=== PATIENT | female | born 1955 | race African-American/Black ===

== ENCOUNTER 2022-02-09 18:57 | Inpatient (IN) | payer MEDICARE, MEDICAID ==
[~2022-02-09] VITALS: Ht 152.4 cm; Wt 107.5 kg
[~2022-02-09 18:57] MED LIST: ASCO500C18 PO; ASPI-1079 PO; CLON1PAT12 TD; DOCU-138 MT; FERR325T30 PO; FOLI-43 PO; GABA-532 PO; HYDR-4001 MT; INSU100I24 SQ; LOSA100T32 PO; MELO-104 PO; NIFE-33 PO; OMEP20CA14 PO; SENN-257 MT
[2022-02-09 22:15] LABS: BASOPHILS % 0.3 % (0.0-2.0); EOSINOPHILS % 0.8 % (0.0-5.0); HEMATOCRIT. 34.2 % (36.0-48.0); HEMOGLOBIN. 10.8 g/dL (12.0-16.0); LYMPHOCYTES % 12.1 % (20.0-50.0); MEAN CORPUSCULAR HEMOGLOBIN 27.1 pg (28.0-32.0); MEAN CORPUSCULAR VOLUME 85.9 fL (81.0-99.0); MEAN PLATELET VOLUME 6.8 fl (7.4-10.4); MONOCYTES % 3.7 % (2.0-8.0); NEUTROPHILS % 83.1 % (40.0-76.0); PLATELET 259 x1000/uL (130-400); RED BLOOD CELL COUNT 3.98 mill/uL (4.2-5.4); RED CELL DISTRIBUTION WIDTH 16.3 % (11.6-14.6)
[2022-02-09] MEDS ORDERED: ASPIRIN 81MG TABLET PO ONE (22:15)
[2022-02-09] MEDS ORDERED: SODIUM CHLORIDE 0.9% 1,000 ML IV ONE (22:15)
[2022-02-09 22:22] LABS: CHLORIDE 107 mEq/L (98-107)
[2022-02-10] MEDS ORDERED: IOHEXOL-350 100 ML BOTTLE ONE (06:05)
[2022-02-10 09:13] VITALS: BP 160/66
[2022-02-10 09:20] VITALS: BP 160/66
[2022-02-10 12:00] VITALS: BP 160/54
[2022-02-10] MEDS: AMLODIPINE 10MG TABLET PO SCH (13:05)
[2022-02-10 16:30] VITALS: BP 168/60
[2022-02-10] MEDS ORDERED: NIFEDIPINE XL 30MG TAB PO SCH (17:45)
[2022-02-10] MEDS ORDERED: HYDROCODONE/ACETAMINOPHEN 5/325MG TABLET PO PRN (17:45)
[2022-02-10] MEDS: INSULIN LISPRO 100 UNITS/ML SUBCUT SCH ×2 (17:50→20:38)
[2022-02-10] MEDS: FUROSEMIDE 40MG/4ML VIAL IVP SCH (18:07)
[2022-02-10] MEDS: LOSARTAN POTASSIUM 100 MG TABLET PO SCH (18:07)
[2022-02-10] MEDS: GABAPENTIN 300MG CAPSULE PO SCH (18:07)
[2022-02-10 18:12] LABS: BASOPHILS % 0.3 % (0.0-2.0); EOSINOPHILS % 0.8 % (0.0-5.0); HEMATOCRIT. 32.8 % (36.0-48.0); HEMOGLOBIN. 10.5 g/dL (12.0-16.0); LYMPHOCYTES % 15.4 % (20.0-50.0); MEAN CORPUSCULAR HEMOGLOBIN 27.9 pg (28.0-32.0); MEAN CORPUSCULAR VOLUME 87.3 fL (81.0-99.0); MEAN PLATELET VOLUME 7.1 fl (7.4-10.4); MONOCYTES % 8.8 % (2.0-8.0); NEUTROPHILS % 74.7 % (40.0-76.0); PLATELET 269 x1000/uL (130-400); RED BLOOD CELL COUNT 3.76 mill/uL (4.2-5.4); RED CELL DISTRIBUTION WIDTH 16.6 % (11.6-14.6)
[2022-02-10 18:23] LABS: CLARITY URINE CLEAR (CLEAR); COLOR URINE YELLOW (YELLOW); KETONES URINE NEGATIVE (NEGATIVE); LEUKOCYTE ESTERASE URINE NEGATIVE (NEGATIVE); NITRITE URINE NEGATIVE (NEGATIVE); OCCULT BLOOD URINE NEGATIVE (NEGATIVE); PROTEIN URINE 3+ (NEGATIVE); UROBILINOGEN URINE 0.2 E.U./dL (0.2-1.0)
[2022-02-10 18:34] LABS: *AMPHETAMINES SCREEN URINE NEGATIVE (NEGATIVE); *BARBITURATES SCREEN URINE NEGATIVE (NEGATIVE); *BENZODIAZEPINES SCREEN URINE NEGATIVE (NEGATIVE); *COCAINE SCREEN URINE NEGATIVE (NEGATIVE); CANNABINOID URINE SCREEN NEGATIVE (NEGATIVE); METHADONE URINE SCREEN NEGATIVE (NEGATIVE); OPIATES URINE SCREEN NEGATIVE (NEGATIVE); PHENCYCLIDINE URINE SCREEN NEGATIVE (NEGATIVE)
[2022-02-10 19:10] LABS: BG BASE EXCESS -4.7 mmol/L (-2.0-2.0); BG CARBOXYHEMOGLOBIN 0.3 % (0.5-1.5); BG DEOXYHEMOGLOBIN 17.1 % (0.0-5.0); BG FRACTION INSPIRED OXYGEN 21; BG METHEMOGLOBIN 0.3 % (0.0-1.5); BG OXYGEN SATURATION 82.8 % (92.0-98.5); BG OXYHEMOGLOBIN 82.3 % (94.0-97.0); BG PH 7.199 (7.350-7.450); BG PO2 48.6 mmHg (75.0-100.0); BG SAMPLE SITE RIGHT BRACHIAL; BG TOTAL HEMOGLOBIN 11.4 g/dL (12.0-18.0); BG VENT MODE ROOM AIR
[2022-02-10 20:00] VITALS: BP 155/69
[2022-02-10] MEDS ORDERED: LEVOFLOXACIN 500MG PREMIX 100 ML IV SCH ×2 (20:00)
[2022-02-10] MEDS: BLOOD SUGAR DIAGNOSTIC STRIP TEST SCH (20:35)
[2022-02-10] MEDS: ATORVASTATIN CALCIUM 40MG TABLET PO SCH (20:35)
[2022-02-10] MEDS: INSULIN GLARGINE 100 UNITS/ML SUBCUT SCH (20:38)
[2022-02-11] VITALS (74 sets, daily range): BP systolic 100–221; BP diastolic 46–150
[2022-02-11] MEDS: OMEPRAZOLE 20MG CAPSULE EXTENDED RELEASE PO SCH ×2 (06:23→06:31)
[2022-02-11] MEDS: BLOOD SUGAR DIAGNOSTIC STRIP TEST SCH ×4 (06:23→21:12)
[2022-02-11] MEDS: IPRATROPIUM/ALBUTEROL 0.5-3(2.5)MG/3ML NEB HHN SCH ×3 (09:52→20:49)
[2022-02-11 12:27] LABS: BG BASE EXCESS -9.4 mmol/L (-2.0-2.0); BG CARBOXYHEMOGLOBIN 0.5 % (0.5-1.5); BG DEOXYHEMOGLOBIN 2.6 % (0.0-5.0); BG FRACTION INSPIRED OXYGEN 50; BG HCO3 ACT 22.6 mmol/L (22.0-26.0); BG METHEMOGLOBIN 0.5 % (0.0-1.5); BG OXYGEN SATURATION 97.4 % (92.0-98.5); BG OXYHEMOGLOBIN 96.4 % (94.0-97.0); BG PCO2 88.9 mmHg (35.0-45.0); BG PH 7.023 (7.350-7.450); BG PO2 107.2 mmHg (75.0-100.0); BG SAMPLE SITE RIGHT RADIAL; BG TOTAL HEMOGLOBIN 11.3 g/dL (12.0-18.0); BG VENT MODE MASK - BIPAP
[2022-02-11] MEDS: ASPIRIN 81MG TABLET PO SCH (13:00)
[2022-02-11] MEDS: AMLODIPINE 10MG TABLET PO SCH (13:00)
[2022-02-11] MEDS: INSULIN LISPRO 100 UNITS/ML SUBCUT SCH ×4 (13:00→21:16)
[2022-02-11] MEDS: GABAPENTIN 300MG CAPSULE PO SCH ×2 (13:00→18:55)
[2022-02-11] MEDS: LOSARTAN POTASSIUM 100 MG TABLET PO SCH (13:00)
[2022-02-11] MEDS: INSULIN GLARGINE 100 UNITS/ML SUBCUT SCH ×2 (13:00→21:17)
[2022-02-11] MEDS ORDERED: METHYLPREDNISOLONE SOD SUCC 125 MG/2 ML VIAL IV NR (13:15)
[2022-02-11] MEDS: FUROSEMIDE 40MG/4ML VIAL IVP SCH ×2 (13:47→17:12)
[2022-02-11] MEDS ORDERED: VECURONIUM BROMIDE 10 MG/VIAL IV ONE (14:00)
[2022-02-11] MEDS ORDERED: ETOMIDATE 2MG/ML 10ML VIAL IV ONE (14:00)
[2022-02-11] MEDS ORDERED: SODIUM CHLORIDE 0.9% 10ML VIAL ONE (14:00)
[2022-02-11] MEDS: ENOXAPARIN 40MG/0.4ML SYR SUBCUT SCH (15:15)
[2022-02-11 16:41] LABS: BG BASE EXCESS -8.1 mmol/L (-2.0-2.0); BG CARBOXYHEMOGLOBIN 0.2 % (0.5-1.5); BG DEOXYHEMOGLOBIN 3.6 % (0.0-5.0); BG FRACTION INSPIRED OXYGEN 40; BG HCO3 ACT 24.7 mmol/L (22.0-26.0); BG METHEMOGLOBIN 0.1 % (0.0-1.5); BG OXYGEN SATURATION 96.4 % (92.0-98.5); BG OXYHEMOGLOBIN 96.1 % (94.0-97.0); BG PCO2 102.1 mmHg (35.0-45.0); BG PH 7.001 (7.350-7.450); BG PO2 95.7 mmHg (75.0-100.0); BG SAMPLE SITE RIGHT RADIAL; BG TOTAL HEMOGLOBIN 11.3 g/dL (12.0-18.0); BG VENT MODE MASK - BIPAP
[2022-02-11] MEDS ORDERED: FENTANYL 2500MCG/250ML PMX 250 ML IV ONE (17:30)
[2022-02-11] MEDS: PROPOFOL 10MG/ML 100ML 100 ML IV PRN ×3 (17:32→23:31)
[2022-02-11 18:44] LABS: BG CARBOXYHEMOGLOBIN 0.3 % (0.5-1.5); BG DEOXYHEMOGLOBIN 0.9 % (0.0-5.0); BG FRACTION INSPIRED OXYGEN 50; BG HCO3 ACT 18.4 mmol/L (22.0-26.0); BG METHEMOGLOBIN 0.2 % (0.0-1.5); BG OXYGEN SATURATION 99.1 % (92.0-98.5); BG OXYHEMOGLOBIN 98.6 % (94.0-97.0); BG PCO2 29.5 mmHg (35.0-45.0); BG PH 7.414 (7.350-7.450); BG PO2 158.2 mmHg (75.0-100.0); BG SAMPLE SITE RIGHT RADIAL; BG TOTAL HEMOGLOBIN 11.7 g/dL (12.0-18.0); BG VENT MODE VENT - AC
[2022-02-11] MEDS ORDERED: FENTANYL 2500MCG/250ML PMX 250 ML IV NR (20:00)
[2022-02-11] MEDS: ATORVASTATIN CALCIUM 40MG TABLET PO SCH (21:15)
[2022-02-11] MEDS: METHYLPREDNISOLONE SOD SUCC 125 MG/2 ML VIAL IV SCH (21:17)
[2022-02-11] MEDS: HYDRALAZINE 20MG/ML VIAL IV PRN (23:30)
[2022-02-12] VITALS (47 sets, daily range): BP systolic 105–198; BP diastolic 48–125
[2022-02-12] MEDS: IPRATROPIUM/ALBUTEROL 0.5-3(2.5)MG/3ML NEB HHN SCH ×6 (00:25→20:54)
[2022-02-12] MEDS: PROPOFOL 10MG/ML 100ML 100 ML IV PRN ×4 (03:41→16:52)
[2022-02-12] MEDS: METHYLPREDNISOLONE SOD SUCC 125 MG/2 ML VIAL IV SCH ×3 (05:37→21:07)
[2022-02-12 05:53] LABS: BASOPHILS % 0.1 % (0.0-2.0); HEMOGLOBIN. 11.1 g/dL (12.0-16.0); LYMPHOCYTES % 7.1 % (20.0-50.0); MEAN CORPUSCULAR VOLUME 85.9 fL (81.0-99.0); MEAN PLATELET VOLUME 7.6 fl (7.4-10.4); MONOCYTES % 5.4 % (2.0-8.0); NEUTROPHILS % 87.4 % (40.0-76.0); PLATELET 260 x1000/uL (130-400); RED BLOOD CELL COUNT 3.96 mill/uL (4.2-5.4); RED CELL DISTRIBUTION WIDTH 16.2 % (11.6-14.6)
[2022-02-12] MEDS: ACETYLCYSTEINE 100MG/ML 10% VIAL 4ML INH SCH ×2 (07:41→16:47)
[2022-02-12] MEDS: BLOOD SUGAR DIAGNOSTIC STRIP TEST SCH ×4 (07:50→21:07)
[2022-02-12 08:03] LABS: BG BASE EXCESS -0.4 mmol/L (-2.0-2.0); BG CARBOXYHEMOGLOBIN 0.3 % (0.5-1.5); BG FRACTION INSPIRED OXYGEN 30; BG HCO3 ACT 21.7 mmol/L (22.0-26.0); BG METHEMOGLOBIN 0.3 % (0.0-1.5); BG OXYHEMOGLOBIN 95.4 % (94.0-97.0); BG PCO2 27.7 mmHg (35.0-45.0); BG PH 7.511 (7.350-7.450); BG SAMPLE SITE RIGHT RADIAL; BG TOTAL HEMOGLOBIN 11.7 g/dL (12.0-18.0); BG VENT MODE VENT - AC
[2022-02-12] MEDS: AMLODIPINE 10MG TABLET PO SCH (08:51)
[2022-02-12] MEDS: GABAPENTIN 300MG CAPSULE PO SCH ×2 (08:51→18:02)
[2022-02-12] MEDS: OMEPRAZOLE 20MG CAPSULE EXTENDED RELEASE PO SCH (08:51)
[2022-02-12] MEDS: FUROSEMIDE 40MG/4ML VIAL IVP SCH (08:52)
[2022-02-12] MEDS: LOSARTAN POTASSIUM 100 MG TABLET PO SCH (08:52)
[2022-02-12] MEDS: ASPIRIN 81MG TABLET PO SCH (08:52)
[2022-02-12] MEDS: INSULIN LISPRO 100 UNITS/ML SUBCUT SCH ×4 (08:54→21:07)
[2022-02-12] MEDS ORDERED: FUROSEMIDE 40MG/4ML VIAL IVP SCH (10:00)
[2022-02-12] MEDS: INSULIN GLARGINE 100 UNITS/ML SUBCUT SCH ×2 (10:43→21:08)
[2022-02-12] MEDS: ENOXAPARIN 40MG/0.4ML SYR SUBCUT SCH (15:55)
[2022-02-12] MEDS ORDERED: FENTANYL 2500MCG/250ML PMX 250 ML IV ONE (19:30)
[2022-02-12] MEDS: MIDAZOLAM 100MG/100ML PMX 100 ML IV PRN (19:33)
[2022-02-12] MEDS: HYDRALAZINE HCL 100MG TABLET PO SCH (21:00)
[2022-02-12] MEDS: ATORVASTATIN CALCIUM 40MG TABLET PO SCH (21:08)
[2022-02-12] MEDS: LEVOFLOXACIN 250MG PREMIX 100 ML IV SCH (21:09)
[2022-02-13] VITALS (29 sets, daily range): BP systolic 124–163; BP diastolic 54–76
[2022-02-13] MEDS: ACETYLCYSTEINE 100MG/ML 10% VIAL 4ML INH SCH ×3 (00:54→15:34)
[2022-02-13] MEDS: IPRATROPIUM/ALBUTEROL 0.5-3(2.5)MG/3ML NEB HHN SCH ×6 (00:54→20:24)
[2022-02-13] MEDS: FENTANYL 2500MCG/250ML PMX 250 ML IV PRN ×2 (01:14→12:26)
[2022-02-13] MEDS: METHYLPREDNISOLONE SOD SUCC 125 MG/2 ML VIAL IV SCH ×3 (05:28→22:05)
[2022-02-13 06:02] LABS: HEMATOCRIT. 30.3 % (36.0-48.0); HEMOGLOBIN. 9.9 g/dL (12.0-16.0); MEAN CORPUSCULAR HEMOGLOBIN 27.3 pg (28.0-32.0); MEAN PLATELET VOLUME 7.7 fl (7.4-10.4); PLATELET 257 x1000/uL (130-400); RED BLOOD CELL COUNT 3.61 mill/uL (4.2-5.4); RED CELL DISTRIBUTION WIDTH 16.6 % (11.6-14.6)
[2022-02-13] MEDS: BLOOD SUGAR DIAGNOSTIC STRIP TEST SCH ×4 (07:50→21:00)
[2022-02-13] MEDS: MIDAZOLAM 100MG/100ML PMX 100 ML IV PRN (08:07)
[2022-02-13 08:35] LABS: BG BASE EXCESS 2.4 mmol/L (-2.0-2.0); BG CARBOXYHEMOGLOBIN 0.3 % (0.5-1.5); BG DEOXYHEMOGLOBIN 4.1 % (0.0-5.0); BG FRACTION INSPIRED OXYGEN 30; BG HCO3 ACT 25.8 mmol/L (22.0-26.0); BG METHEMOGLOBIN 0.1 % (0.0-1.5); BG OXYGEN SATURATION 95.9 % (92.0-98.5); BG OXYHEMOGLOBIN 95.5 % (94.0-97.0); BG PCO2 35.3 mmHg (35.0-45.0); BG PH 7.481 (7.350-7.450); BG PO2 80.9 mmHg (75.0-100.0); BG SAMPLE SITE RIGHT RADIAL; BG TOTAL HEMOGLOBIN 10.3 g/dL (12.0-18.0); BG VENT MODE VENT - AC
[2022-02-13] MEDS: AMLODIPINE 10MG TABLET PO SCH (09:06)
[2022-02-13] MEDS: ASPIRIN 81MG TABLET PO SCH (09:06)
[2022-02-13] MEDS: GABAPENTIN 300MG CAPSULE PO SCH ×2 (09:06→16:34)
[2022-02-13] MEDS: OMEPRAZOLE 20MG CAPSULE EXTENDED RELEASE PO SCH (09:06)
[2022-02-13] MEDS: INSULIN LISPRO 100 UNITS/ML SUBCUT SCH ×4 (09:08→22:25)
[2022-02-13] MEDS: HYDRALAZINE HCL 100MG TABLET PO SCH ×2 (09:15→22:06)
[2022-02-13 10:48] LABS: PLATELET ESTIMATE NORMAL
[2022-02-13] MEDS: INSULIN GLARGINE 100 UNITS/ML SUBCUT SCH ×2 (11:58→22:25)
[2022-02-13] MEDS: ENOXAPARIN 40MG/0.4ML SYR SUBCUT SCH (14:41)
[2022-02-13] MEDS ORDERED: NALOXONE HCL 0.4MG/ML VIAL IV PRN (15:45)
[2022-02-13] MEDS: ATORVASTATIN CALCIUM 40MG TABLET PO SCH (22:06)
[2022-02-14] VITALS (36 sets, daily range): BP systolic 105–148; BP diastolic 47–104
[2022-02-14] MEDS: IPRATROPIUM/ALBUTEROL 0.5-3(2.5)MG/3ML NEB HHN SCH ×6 (00:17→20:33)
[2022-02-14] MEDS: ACETYLCYSTEINE 100MG/ML 10% VIAL 4ML INH SCH ×2 (00:17→08:06)
[2022-02-14] MEDS: MIDAZOLAM 100MG/100ML PMX 100 ML IV PRN ×2 (00:34→20:27)
[2022-02-14] MEDS: FENTANYL 2500MCG/250ML PMX 250 ML IV PRN ×2 (03:25→18:02)
[2022-02-14 05:11] LABS: HEMATOCRIT. 33.4 % (36.0-48.0); HEMOGLOBIN. 10.8 g/dL (12.0-16.0); MEAN CORPUSCULAR HEMOGLOBIN 27.6 pg (28.0-32.0); MEAN PLATELET VOLUME 7.9 fl (7.4-10.4); PLATELET 270 x1000/uL (130-400); RED BLOOD CELL COUNT 3.93 mill/uL (4.2-5.4); RED CELL DISTRIBUTION WIDTH 16.8 % (11.6-14.6)
[2022-02-14] MEDS: METHYLPREDNISOLONE SOD SUCC 125 MG/2 ML VIAL IV SCH ×3 (05:38→22:31)
[2022-02-14] MEDS: OMEPRAZOLE 20MG CAPSULE EXTENDED RELEASE PO SCH (08:04)
[2022-02-14] MEDS: BLOOD SUGAR DIAGNOSTIC STRIP TEST SCH ×4 (08:05→21:00)
[2022-02-14] MEDS: INSULIN LISPRO 100 UNITS/ML SUBCUT SCH ×4 (08:05→22:39)
[2022-02-14] MEDS: GABAPENTIN 300MG CAPSULE PO SCH ×2 (08:59→18:04)
[2022-02-14] MEDS: HYDRALAZINE HCL 100MG TABLET PO SCH ×2 (08:59→22:31)
[2022-02-14] MEDS: AMLODIPINE 10MG TABLET PO SCH (08:59)
[2022-02-14] MEDS: ASPIRIN 81MG TABLET PO SCH (08:59)
[2022-02-14 09:33] LABS: BG CARBOXYHEMOGLOBIN 0.2 % (0.5-1.5); BG DEOXYHEMOGLOBIN 6.2 % (0.0-5.0); BG FRACTION INSPIRED OXYGEN 30; BG HCO3 ACT 26.2 mmol/L (22.0-26.0); BG METHEMOGLOBIN 0.1 % (0.0-1.5); BG OXYGEN SATURATION 93.8 % (92.0-98.5); BG OXYHEMOGLOBIN 93.5 % (94.0-97.0); BG PCO2 34.8 mmHg (35.0-45.0); BG PH 7.494 (7.350-7.450); BG PO2 65.8 mmHg (75.0-100.0); BG SAMPLE SITE RIGHT RADIAL; BG TOTAL HEMOGLOBIN 11.1 g/dL (12.0-18.0); BG VENT MODE VENT - AC
[2022-02-14 10:06] LABS: NUCLEATED RED BLOOD CELLS 2 /100 WBC
[2022-02-14 10:07] LABS: PLATELET ESTIMATE NORMAL
[2022-02-14] MEDS: INSULIN GLARGINE 100 UNITS/ML SUBCUT SCH ×2 (12:37→22:34)
[2022-02-14] MEDS: ENOXAPARIN 40MG/0.4ML SYR SUBCUT SCH (14:11)
[2022-02-14] MEDS: LEVOFLOXACIN 250MG PREMIX 100 ML IV SCH (20:24)
[2022-02-14] MEDS: ATORVASTATIN CALCIUM 40MG TABLET PO SCH (22:30)
[2022-02-15] VITALS (47 sets, daily range): BP systolic 76–165; BP diastolic 24–94
[2022-02-15] MEDS: IPRATROPIUM/ALBUTEROL 0.5-3(2.5)MG/3ML NEB HHN SCH ×6 (01:16→20:32)
[2022-02-15] MEDS: ACETYLCYSTEINE 100MG/ML 10% VIAL 4ML INH SCH (01:20)
[2022-02-15 04:59] LABS: HEMATOCRIT. 33.7 % (36.0-48.0); HEMOGLOBIN. 10.6 g/dL (12.0-16.0); MEAN CORPUSCULAR HEMOGLOBIN 27.5 pg (28.0-32.0); MEAN CORPUSCULAR VOLUME 87.3 fL (81.0-99.0); PLATELET 258 x1000/uL (130-400); RED BLOOD CELL COUNT 3.86 mill/uL (4.2-5.4)
[2022-02-15] MEDS: METHYLPREDNISOLONE SOD SUCC 125 MG/2 ML VIAL IV SCH ×3 (06:00→22:04)
[2022-02-15] MEDS: BLOOD SUGAR DIAGNOSTIC STRIP TEST SCH ×4 (07:50→21:00)
[2022-02-15] MEDS: FENTANYL 2500MCG/250ML PMX 250 ML IV PRN ×2 (07:58→21:03)
[2022-02-15 08:15] LABS: PLATELET ESTIMATE NORMAL
[2022-02-15] MEDS: GABAPENTIN 300MG CAPSULE PO SCH ×2 (09:04→17:47)
[2022-02-15] MEDS: ASPIRIN 81MG TABLET PO SCH (09:05)
[2022-02-15] MEDS: AMLODIPINE 10MG TABLET PO SCH (09:05)
[2022-02-15] MEDS: INSULIN LISPRO 100 UNITS/ML SUBCUT SCH ×4 (09:06→22:08)
[2022-02-15] MEDS: INSULIN GLARGINE 100 UNITS/ML SUBCUT SCH ×2 (09:06→22:07)
[2022-02-15] MEDS: OMEPRAZOLE 20MG CAPSULE EXTENDED RELEASE PO SCH (09:08)
[2022-02-15 09:09] LABS: BG CARBOXYHEMOGLOBIN 0.3 % (0.5-1.5); BG DEOXYHEMOGLOBIN 1.5 % (0.0-5.0); BG FRACTION INSPIRED OXYGEN 50; BG METHEMOGLOBIN 0.2 % (0.0-1.5); BG OXYGEN SATURATION 98.5 % (92.0-98.5); BG PCO2 37.5 mmHg (35.0-45.0); BG PH 7.442 (7.350-7.450); BG PO2 139.4 mmHg (75.0-100.0); BG SAMPLE SITE RIGHT RADIAL; BG TOTAL HEMOGLOBIN 10.6 g/dL (12.0-18.0); BG VENT MODE VENT - AC
[2022-02-15] MEDS: HYDRALAZINE HCL 100MG TABLET PO SCH ×2 (09:11→21:54)
[2022-02-15] MEDS ORDERED: SODIUM POLYSTYRENE SULFONATE 15 G/60 ML BOT PO NR (10:15)
[2022-02-15] MEDS: MIDAZOLAM HCL 100 MG in SODIUM CHLORIDE 0.9% 100 ML IV PRN ×2 (10:21→21:53)
[2022-02-15] MEDS: SODIUM CHLORIDE 0.45% 1,000 ML IV SCH (11:46)
[2022-02-15] MEDS: ENOXAPARIN 40MG/0.4ML SYR SUBCUT SCH (14:18)
[2022-02-15] MEDS: CHLORDIAZEPOXIDE 5 MG CAPSULE PO SCH ×2 (14:19→21:54)
[2022-02-15] MEDS: ATORVASTATIN CALCIUM 40MG TABLET PO SCH (21:54)
[2022-02-16] VITALS (49 sets, daily range): BP systolic 122–169; BP diastolic 54–111
[2022-02-16] MEDS: SODIUM CHLORIDE 0.45% 1,000 ML IV SCH ×3 (00:20→22:14)
[2022-02-16] MEDS: ACETYLCYSTEINE 200MG/ML 20% VIAL 4ML INH SCH ×4 (00:28→11:18)
[2022-02-16] MEDS: IPRATROPIUM/ALBUTEROL 0.5-3(2.5)MG/3ML NEB HHN SCH ×6 (00:28→20:10)
[2022-02-16 05:58] LABS: HEMOGLOBIN. 9.9 g/dL (12.0-16.0); MEAN CORPUSCULAR HEMOGLOBIN 27.2 pg (28.0-32.0); MEAN CORPUSCULAR VOLUME 85.3 fL (81.0-99.0); MEAN PLATELET VOLUME 8.3 fl (7.4-10.4); PLATELET 270 x1000/uL (130-400); RED BLOOD CELL COUNT 3.63 mill/uL (4.2-5.4); RED CELL DISTRIBUTION WIDTH 16.6 % (11.6-14.6)
[2022-02-16] MEDS: METHYLPREDNISOLONE SOD SUCC 125 MG/2 ML VIAL IV SCH (06:21)
[2022-02-16] MEDS: CHLORDIAZEPOXIDE 5 MG CAPSULE PO SCH ×3 (06:29→22:13)
[2022-02-16 07:51] LABS: PLATELET ESTIMATE NORMAL
[2022-02-16 08:17] LABS: BG BASE EXCESS 3.9 mmol/L (-2.0-2.0); BG CARBOXYHEMOGLOBIN 0.2 % (0.5-1.5); BG DEOXYHEMOGLOBIN 4.4 % (0.0-5.0); BG FRACTION INSPIRED OXYGEN 40; BG HCO3 ACT 28.3 mmol/L (22.0-26.0); BG METHEMOGLOBIN 0.4 % (0.0-1.5); BG OXYGEN SATURATION 95.6 % (92.0-98.5); BG PCO2 41.6 mmHg (35.0-45.0); BG PO2 83.7 mmHg (75.0-100.0); BG SAMPLE SITE LEFT RADIAL; BG TOTAL HEMOGLOBIN 11.4 g/dL (12.0-18.0); BG VENT MODE VENT - AC
[2022-02-16] MEDS ORDERED: LEVOFLOXACIN 500MG PREMIX 100 ML IV SCH ×2 (08:30→11:00)
[2022-02-16] MEDS: BLOOD SUGAR DIAGNOSTIC STRIP TEST SCH ×4 (08:33→21:00)
[2022-02-16] MEDS: GABAPENTIN 300MG CAPSULE PO SCH ×2 (08:39→17:21)
[2022-02-16] MEDS: AMLODIPINE 10MG TABLET PO SCH (08:39)
[2022-02-16] MEDS: OMEPRAZOLE 20MG CAPSULE EXTENDED RELEASE PO SCH (08:39)
[2022-02-16] MEDS: HYDRALAZINE HCL 100MG TABLET PO SCH ×2 (08:40→22:13)
[2022-02-16] MEDS: ASPIRIN 81MG TABLET PO SCH (08:40)
[2022-02-16] MEDS: INSULIN LISPRO 100 UNITS/ML SUBCUT SCH ×4 (08:40→22:35)
[2022-02-16] MEDS: INSULIN GLARGINE 100 UNITS/ML SUBCUT SCH ×2 (11:10→22:31)
[2022-02-16] MEDS: ENOXAPARIN 40MG/0.4ML SYR SUBCUT SCH (13:10)
[2022-02-16] MEDS: METHYLPREDNISOLONE SOD SUCC 40 MG/ML VIAL IV SCH ×2 (13:11→22:13)
[2022-02-16] MEDS: FENTANYL 2500MCG/250ML PMX 250 ML IV PRN (13:12)
[2022-02-16] MEDS: PROPOFOL 10MG/ML 100ML 100 ML IV PRN (17:28)
[2022-02-16] MEDS: ATORVASTATIN CALCIUM 40MG TABLET PO SCH (22:13)
[2022-02-17] VITALS (58 sets, daily range): BP systolic 41–216; BP diastolic 22–122
[2022-02-17] MEDS: IPRATROPIUM/ALBUTEROL 0.5-3(2.5)MG/3ML NEB HHN SCH ×6 (00:31→20:53)
[2022-02-17] MEDS: PROPOFOL 10MG/ML 100ML 100 ML IV PRN (04:11)
[2022-02-17] MEDS: FENTANYL 2500MCG/250ML PMX 250 ML IV PRN (05:13)
[2022-02-17 05:28] LABS: HEMATOCRIT. 31.3 % (36.0-48.0); HEMOGLOBIN. 9.9 g/dL (12.0-16.0); MEAN CORPUSCULAR HEMOGLOBIN 27.1 pg (28.0-32.0); MEAN CORPUSCULAR VOLUME 85.9 fL (81.0-99.0); MEAN PLATELET VOLUME 8.2 fl (7.4-10.4); PLATELET 259 x1000/uL (130-400); RED BLOOD CELL COUNT 3.64 mill/uL (4.2-5.4); RED CELL DISTRIBUTION WIDTH 16.6 % (11.6-14.6)
[2022-02-17] MEDS: METHYLPREDNISOLONE SOD SUCC 40 MG/ML VIAL IV SCH ×3 (05:53→21:56)
[2022-02-17] MEDS: CHLORDIAZEPOXIDE 5 MG CAPSULE PO SCH ×3 (05:53→22:00)
[2022-02-17 07:21] LABS: PLATELET ESTIMATE NORMAL
[2022-02-17] MEDS: OMEPRAZOLE 20MG CAPSULE EXTENDED RELEASE PO SCH (07:50)
[2022-02-17] MEDS: BLOOD SUGAR DIAGNOSTIC STRIP TEST SCH ×4 (07:50→21:00)
[2022-02-17] MEDS: INSULIN LISPRO 100 UNITS/ML SUBCUT SCH ×4 (08:20→22:49)
[2022-02-17] MEDS: ACETYLCYSTEINE 200MG/ML 20% VIAL 4ML INH SCH ×2 (08:27→16:04)
[2022-02-17] MEDS: HYDRALAZINE HCL 100MG TABLET PO SCH ×2 (09:00→21:56)
[2022-02-17] MEDS: INSULIN GLARGINE 100 UNITS/ML SUBCUT SCH ×2 (10:00→22:49)
[2022-02-17] MEDS: GABAPENTIN 300MG CAPSULE PO SCH ×2 (10:05→17:25)
[2022-02-17] MEDS: ASPIRIN 81MG TABLET PO SCH (10:05)
[2022-02-17] MEDS: AMLODIPINE 10MG TABLET PO SCH (10:06)
[2022-02-17] MEDS: LEVOFLOXACIN 250MG PREMIX 50 ML IV SCH (11:00)
[2022-02-17 12:38] LABS: BG BASE EXCESS -2.5 mmol/L (-2.0-2.0); BG CARBOXYHEMOGLOBIN 0.5 % (0.5-1.5); BG DEOXYHEMOGLOBIN 5.9 % (0.0-5.0); BG FRACTION INSPIRED OXYGEN 40; BG HCO3 ACT 24.7 mmol/L (22.0-26.0); BG METHEMOGLOBIN 0.2 % (0.0-1.5); BG OXYGEN SATURATION 94.1 % (92.0-98.5); BG OXYHEMOGLOBIN 93.4 % (94.0-97.0); BG PCO2 53.2 mmHg (35.0-45.0); BG PH 7.285 (7.350-7.450); BG PO2 77.8 mmHg (75.0-100.0); BG SAMPLE SITE RIGHT RADIAL; BG TOTAL HEMOGLOBIN 12.4 g/dL (12.0-18.0); BG VENT MODE VENT - CPAP
[2022-02-17] MEDS: ENOXAPARIN 40MG/0.4ML SYR SUBCUT SCH (14:00)
[2022-02-17] MEDS: ATORVASTATIN CALCIUM 40MG TABLET PO SCH (21:56)
[2022-02-18] VITALS (35 sets, daily range): BP systolic 118–174; BP diastolic 40–129
[2022-02-18] MEDS: IPRATROPIUM/ALBUTEROL 0.5-3(2.5)MG/3ML NEB HHN SCH ×6 (00:32→20:49)
[2022-02-18] MEDS: CHLORDIAZEPOXIDE 5 MG CAPSULE PO SCH ×3 (06:00→21:41)
[2022-02-18] MEDS: METHYLPREDNISOLONE SOD SUCC 40 MG/ML VIAL IV SCH ×2 (06:02→21:40)
[2022-02-18 06:05] LABS: HEMATOCRIT. 34.9 % (36.0-48.0); HEMOGLOBIN. 10.8 g/dL (12.0-16.0); MEAN CORPUSCULAR HEMOGLOBIN 27.2 pg (28.0-32.0); MEAN CORPUSCULAR VOLUME 87.9 fL (81.0-99.0); MEAN PLATELET VOLUME 8.3 fl (7.4-10.4); PLATELET 305 x1000/uL (130-400); RED BLOOD CELL COUNT 3.97 mill/uL (4.2-5.4); RED CELL DISTRIBUTION WIDTH 16.5 % (11.6-14.6)
[2022-02-18 07:24] LABS: NUCLEATED RED BLOOD CELLS 2 /100 WBC; PLATELET ESTIMATE NORMAL
[2022-02-18] MEDS: ACETYLCYSTEINE 200MG/ML 20% VIAL 4ML INH SCH ×2 (07:49→16:20)
[2022-02-18] MEDS: OMEPRAZOLE 20MG CAPSULE EXTENDED RELEASE PO SCH (07:50)
[2022-02-18] MEDS: BLOOD SUGAR DIAGNOSTIC STRIP TEST SCH ×4 (08:00→21:29)
[2022-02-18] MEDS: INSULIN LISPRO 100 UNITS/ML SUBCUT SCH ×3 (08:20→21:00)
[2022-02-18] MEDS: HYDRALAZINE HCL 100MG TABLET PO SCH ×2 (09:38→21:41)
[2022-02-18] MEDS: AMLODIPINE 10MG TABLET PO SCH (09:38)
[2022-02-18] MEDS: ASPIRIN 81MG TABLET PO SCH (09:38)
[2022-02-18] MEDS: GABAPENTIN 300MG CAPSULE PO SCH ×2 (09:39→17:13)
[2022-02-18] MEDS: INSULIN GLARGINE 100 UNITS/ML SUBCUT SCH ×2 (10:00→21:42)
[2022-02-18] MEDS: LEVOFLOXACIN 250MG PREMIX 50 ML IV SCH (11:00)
[2022-02-18] MEDS: ENOXAPARIN 40MG/0.4ML SYR SUBCUT SCH (14:00)
[2022-02-18] MEDS: ATORVASTATIN CALCIUM 40MG TABLET PO SCH (21:41)
[2022-02-19] VITALS (32 sets, daily range): BP systolic 118–179; BP diastolic 53–95
[2022-02-19] MEDS: IPRATROPIUM/ALBUTEROL 0.5-3(2.5)MG/3ML NEB HHN SCH ×6 (00:11→20:13)
[2022-02-19] MEDS: ACETYLCYSTEINE 200MG/ML 20% VIAL 4ML INH SCH ×3 (00:11→16:07)
[2022-02-19] MEDS: BLOOD SUGAR DIAGNOSTIC STRIP TEST SCH ×4 (07:50→20:54)
[2022-02-19] MEDS: ASPIRIN 81MG TABLET PO SCH (10:10)
[2022-02-19] MEDS: METHYLPREDNISOLONE SOD SUCC 40 MG/ML VIAL IV SCH (10:10)
[2022-02-19] MEDS: GABAPENTIN 300MG CAPSULE PO SCH ×2 (10:10→17:00)
[2022-02-19] MEDS: HYDRALAZINE HCL 100MG TABLET PO SCH ×2 (10:10→20:54)
[2022-02-19] MEDS: OMEPRAZOLE 20MG CAPSULE EXTENDED RELEASE PO SCH (10:10)
[2022-02-19] MEDS: AMLODIPINE 10MG TABLET PO SCH (10:10)
[2022-02-19] MEDS: INSULIN GLARGINE 100 UNITS/ML SUBCUT SCH ×2 (10:14→20:56)
[2022-02-19] MEDS: INSULIN LISPRO 100 UNITS/ML SUBCUT SCH ×4 (10:15→21:09)
[2022-02-19] MEDS: LEVOFLOXACIN 250MG PREMIX 50 ML IV SCH (11:00)
[2022-02-19 12:06] LABS: HEMATOCRIT. 34.6 % (36.0-48.0); HEMOGLOBIN. 10.8 g/dL (12.0-16.0); MEAN PLATELET VOLUME 8.2 fl (7.4-10.4); PLATELET 273 x1000/uL (130-400); RED BLOOD CELL COUNT 4.02 mill/uL (4.2-5.4); RED CELL DISTRIBUTION WIDTH 16.5 % (11.6-14.6)
[2022-02-19 13:01] LABS: NUCLEATED RED BLOOD CELLS 1 /100 WBC; PLATELET ESTIMATE NORMAL
[2022-02-19] MEDS: ENOXAPARIN 40MG/0.4ML SYR SUBCUT SCH (14:00)
[2022-02-19] MEDS: ATORVASTATIN CALCIUM 40MG TABLET PO SCH (20:55)
[2022-02-20] VITALS (32 sets, daily range): BP systolic 104–165; BP diastolic 48–131
[2022-02-20] MEDS: ACETYLCYSTEINE 200MG/ML 20% VIAL 4ML INH SCH ×2 (00:20→08:29)
[2022-02-20] MEDS: IPRATROPIUM/ALBUTEROL 0.5-3(2.5)MG/3ML NEB HHN SCH ×6 (00:22→20:44)
[2022-02-20] MEDS: DEXTROSE 50% WATER 50ML SYRINGE IV PRN (06:44)
[2022-02-20] MEDS: BLOOD SUGAR DIAGNOSTIC STRIP TEST SCH ×4 (06:45→21:30)
[2022-02-20 07:42] LABS: BASOPHILS % 0.3 % (0.0-2.0); EOSINOPHILS % 1.1 % (0.0-5.0); HEMATOCRIT. 33.6 % (36.0-48.0); HEMOGLOBIN. 10.5 g/dL (12.0-16.0); LYMPHOCYTES % 8.6 % (20.0-50.0); MEAN CORPUSCULAR HEMOGLOBIN 27.3 pg (28.0-32.0); MEAN CORPUSCULAR VOLUME 87.1 fL (81.0-99.0); MEAN PLATELET VOLUME 8.5 fl (7.4-10.4); MONOCYTES % 11.8 % (2.0-8.0); NEUTROPHILS % 78.2 % (40.0-76.0); PLATELET 252 x1000/uL (130-400); RED BLOOD CELL COUNT 3.85 mill/uL (4.2-5.4); RED CELL DISTRIBUTION WIDTH 16.5 % (11.6-14.6)
[2022-02-20] MEDS: OMEPRAZOLE 20MG CAPSULE EXTENDED RELEASE PO SCH (08:40)
[2022-02-20] MEDS: ASPIRIN 81MG TABLET PO SCH (08:40)
[2022-02-20] MEDS: HYDRALAZINE HCL 100MG TABLET PO SCH ×2 (08:41→23:59)
[2022-02-20] MEDS: AMLODIPINE 10MG TABLET PO SCH (08:41)
[2022-02-20] MEDS: GABAPENTIN 300MG CAPSULE PO SCH ×2 (08:55→17:09)
[2022-02-20] MEDS ORDERED: CHLORDIAZEPOXIDE 5 MG CAPSULE PO SCH (09:00)
[2022-02-20] MEDS ORDERED: METHYLPREDNISOLONE SOD SUCC 40 MG/ML VIAL IV SCH (09:00)
[2022-02-20] MEDS: INSULIN LISPRO 100 UNITS/ML SUBCUT SCH ×4 (09:40→23:57)
[2022-02-20] MEDS: INSULIN GLARGINE 100 UNITS/ML SUBCUT SCH ×2 (09:41→23:55)
[2022-02-20] MEDS: LEVOFLOXACIN 250MG PREMIX 50 ML IV SCH (11:43)
[2022-02-20] MEDS: HYDRALAZINE 20MG/ML VIAL IV PRN (12:43)
[2022-02-20] MEDS: ENOXAPARIN 40MG/0.4ML SYR SUBCUT SCH (14:29)
[2022-02-21] VITALS (28 sets, daily range): BP systolic 121–173; BP diastolic 42–128
[2022-02-21] MEDS: GUAIFENESIN 600MG ER TABLET PO SCH ×3 (00:02→21:12)
[2022-02-21] MEDS: IPRATROPIUM/ALBUTEROL 0.5-3(2.5)MG/3ML NEB HHN SCH ×6 (00:47→20:11)
[2022-02-21] MEDS: BLOOD SUGAR DIAGNOSTIC STRIP TEST SCH ×4 (07:18→21:12)
[2022-02-21] MEDS: INSULIN LISPRO 100 UNITS/ML SUBCUT SCH ×4 (08:20→21:00)
[2022-02-21] MEDS: GABAPENTIN 300MG CAPSULE PO SCH ×2 (09:25→16:59)
[2022-02-21] MEDS: PREDNISONE 10MG TABLET PO SCH ×2 (09:25→16:59)
[2022-02-21] MEDS: ASPIRIN 81MG TABLET PO SCH (09:25)
[2022-02-21] MEDS: HYDRALAZINE HCL 100MG TABLET PO SCH ×2 (09:25→21:12)
[2022-02-21] MEDS: AMLODIPINE 10MG TABLET PO SCH (09:26)
[2022-02-21] MEDS: OMEPRAZOLE 20MG CAPSULE EXTENDED RELEASE PO SCH (09:26)
[2022-02-21] MEDS: INSULIN GLARGINE 100 UNITS/ML SUBCUT SCH ×2 (09:38→22:00)
[2022-02-21] MEDS: DEXTROSE 50% WATER 50ML SYRINGE IV PRN (09:50)
[2022-02-21] MEDS ORDERED: LACTULOSE 20G/30ML UDC PO PRN (11:30)
[2022-02-21] MEDS: LEVOFLOXACIN 250MG PREMIX 50 ML IV SCH (12:25)
[2022-02-21] MEDS: HYDRALAZINE 20MG/ML VIAL IV PRN (13:26)
[2022-02-21] MEDS: ONDANSETRON HCL 4MG/2ML INJ IV PRN (13:26)
[2022-02-21] MEDS: ENOXAPARIN 40MG/0.4ML SYR SUBCUT SCH (13:27)
[2022-02-21] MEDS: DOCUSATE SODIUM 100MG CAPSULE PO SCH (17:00)
[2022-02-21] MEDS: ATORVASTATIN CALCIUM 40MG TABLET PO SCH ×2 (21:11)
[2022-02-22] VITALS (25 sets, daily range): BP systolic 107–165; BP diastolic 43–127
[2022-02-22] MEDS: ONDANSETRON HCL 4MG/2ML INJ IV PRN ×3 (01:18→09:13)
[2022-02-22] MEDS: IPRATROPIUM/ALBUTEROL 0.5-3(2.5)MG/3ML NEB HHN SCH ×5 (04:43→20:00)
[2022-02-22 05:35] LABS: HEMATOCRIT. 37.9 % (36.0-48.0); HEMOGLOBIN. 12.1 g/dL (12.0-16.0); MEAN CORPUSCULAR HEMOGLOBIN 27.6 pg (28.0-32.0); MEAN CORPUSCULAR VOLUME 86.8 fL (81.0-99.0); MEAN PLATELET VOLUME 8.9 fl (7.4-10.4); PLATELET 237 x1000/uL (130-400); RED BLOOD CELL COUNT 4.37 mill/uL (4.2-5.4); RED CELL DISTRIBUTION WIDTH 16.3 % (11.6-14.6)
[2022-02-22 07:18] LABS: PLATELET ESTIMATE NORMAL
[2022-02-22] MEDS: INSULIN LISPRO 100 UNITS/ML SUBCUT SCH ×3 (08:20→21:00)
[2022-02-22] MEDS: BLOOD SUGAR DIAGNOSTIC STRIP TEST SCH ×3 (08:46→21:00)
[2022-02-22] MEDS ORDERED: SODIUM POLYSTYRENE SULFONATE 15 G/60 ML BOT PO NR (09:00)
[2022-02-22] MEDS ORDERED: SODIUM BICARBONATE 8.4% 1 MEQ/ML 50ML SYR IV NR (09:00)
[2022-02-22] MEDS ORDERED: DEXTROSE 50% WATER 50ML SYRINGE IV NR (09:00)
[2022-02-22] MEDS ORDERED: INSULIN REGULAR (HUMULIN R) 300UNITS/3ML VIAL IV NR (09:00)
[2022-02-22] MEDS: PREDNISONE 10MG TABLET PO SCH (09:03)
[2022-02-22] MEDS: OMEPRAZOLE 20MG CAPSULE EXTENDED RELEASE PO SCH (09:03)
[2022-02-22] MEDS: GABAPENTIN 300MG CAPSULE PO SCH (09:03)
[2022-02-22] MEDS: ASPIRIN 81MG TABLET PO SCH (09:03)
[2022-02-22] MEDS: DOCUSATE SODIUM 100MG CAPSULE PO SCH (09:03)
[2022-02-22] MEDS: AMLODIPINE 10MG TABLET PO SCH (09:05)
[2022-02-22] MEDS: GUAIFENESIN 600MG ER TABLET PO SCH ×2 (09:13→23:06)
[2022-02-22] MEDS: HYDRALAZINE HCL 100MG TABLET PO SCH ×2 (09:14→23:06)
[2022-02-22] MEDS: INSULIN GLARGINE 100 UNITS/ML SUBCUT SCH ×2 (10:00→23:08)
[2022-02-22] MEDS ORDERED: BISACODYL 10MG SUPP PR NR (11:45)
[2022-02-22] MEDS: LEVOFLOXACIN 250MG PREMIX 50 ML IV SCH (12:42)
[2022-02-22] MEDS: ENOXAPARIN 40MG/0.4ML SYR SUBCUT SCH (14:11)
[2022-02-22] MEDS: ATORVASTATIN CALCIUM 40MG TABLET PO SCH (23:06)
[2022-02-23] VITALS: BP 145/72
[2022-02-23 04:00] VITALS: BP 125/62
[2022-02-23] MEDS: BLOOD SUGAR DIAGNOSTIC STRIP TEST SCH ×3 (07:08→16:40)
[2022-02-23] MEDS: INSULIN LISPRO 100 UNITS/ML SUBCUT SCH ×4 (07:08→21:28)
[2022-02-23] MEDS: OMEPRAZOLE 20MG CAPSULE EXTENDED RELEASE PO SCH (07:09)
[2022-02-23 08:00] VITALS: BP 148/68
[2022-02-23 08:22] LABS: EOSINOPHILS % 1.8 % (0.0-5.0); HEMATOCRIT. 35.5 % (36.0-48.0); HEMOGLOBIN. 11.4 g/dL (12.0-16.0); LYMPHOCYTES % 9.9 % (20.0-50.0); MEAN CORPUSCULAR HEMOGLOBIN 27.7 pg (28.0-32.0); MEAN CORPUSCULAR VOLUME 86.6 fL (81.0-99.0); MEAN PLATELET VOLUME 8.6 fl (7.4-10.4); MONOCYTES % 7.5 % (2.0-8.0); NEUTROPHILS % 80.8 % (40.0-76.0); PLATELET 249 x1000/uL (130-400); RED BLOOD CELL COUNT 4.11 mill/uL (4.2-5.4); RED CELL DISTRIBUTION WIDTH 16.1 % (11.6-14.6)
[2022-02-23] MEDS: GABAPENTIN 300MG CAPSULE PO SCH ×2 (08:56→18:25)
[2022-02-23] MEDS: AMLODIPINE 10MG TABLET PO SCH (08:57)
[2022-02-23] MEDS: GUAIFENESIN 600MG ER TABLET PO SCH ×2 (08:58→21:27)
[2022-02-23] MEDS: HYDRALAZINE HCL 100MG TABLET PO SCH ×2 (08:58→21:27)
[2022-02-23] MEDS: ASPIRIN 81MG TABLET PO SCH (08:58)
[2022-02-23] MEDS: DOCUSATE SODIUM 100MG CAPSULE PO SCH ×2 (08:58→18:25)
[2022-02-23] MEDS ORDERED: PREDNISONE 10MG TABLET PO SCH (09:00)
[2022-02-23] MEDS: IPRATROPIUM/ALBUTEROL 0.5-3(2.5)MG/3ML NEB HHN SCH ×5 (09:27→21:12)
[2022-02-23] MEDS: INSULIN GLARGINE 100 UNITS/ML SUBCUT SCH ×2 (10:00→21:29)
[2022-02-23] MEDS: LEVOFLOXACIN 250MG PREMIX 50 ML IV SCH (11:53)
[2022-02-23] MEDS: ENOXAPARIN 40MG/0.4ML SYR SUBCUT SCH (15:04)
[2022-02-23] MEDS: DEXT 5%/0.9% NACL 1,000 ML IV SCH (15:05)
[2022-02-23 16:00] VITALS: BP 142/60
[2022-02-23 20:00] VITALS: BP 145/47
[2022-02-23] MEDS: ATORVASTATIN CALCIUM 40MG TABLET PO SCH (21:29)
[2022-02-24] VITALS: BP 135/46
[2022-02-24] MEDS: IPRATROPIUM/ALBUTEROL 0.5-3(2.5)MG/3ML NEB HHN SCH ×5 (00:31→21:27)
[2022-02-24 04:00] VITALS: BP 117/61
[2022-02-24] MEDS: OMEPRAZOLE 20MG CAPSULE EXTENDED RELEASE PO SCH (06:17)
[2022-02-24] MEDS: BLOOD SUGAR DIAGNOSTIC STRIP TEST SCH ×4 (06:20→21:30)
[2022-02-24 06:46] LABS: BASOPHILS % 0.2 % (0.0-2.0); EOSINOPHILS % 0.8 % (0.0-5.0); HEMATOCRIT. 31.9 % (36.0-48.0); HEMOGLOBIN. 10.3 g/dL (12.0-16.0); LYMPHOCYTES % 7.8 % (20.0-50.0); MEAN CORPUSCULAR HEMOGLOBIN 27.6 pg (28.0-32.0); MEAN CORPUSCULAR VOLUME 85.8 fL (81.0-99.0); MEAN PLATELET VOLUME 8.9 fl (7.4-10.4); MONOCYTES % 7.2 % (2.0-8.0); PLATELET 216 x1000/uL (130-400); RED BLOOD CELL COUNT 3.71 mill/uL (4.2-5.4); RED CELL DISTRIBUTION WIDTH 15.8 % (11.6-14.6)
[2022-02-24] MEDS: INSULIN LISPRO 100 UNITS/ML SUBCUT SCH ×4 (07:10→21:00)
[2022-02-24 08:00] VITALS: BP 151/57
[2022-02-24] MEDS: HYDRALAZINE HCL 100MG TABLET PO SCH ×2 (08:57→21:26)
[2022-02-24] MEDS: DOCUSATE SODIUM 100MG CAPSULE PO SCH ×2 (08:57→17:49)
[2022-02-24] MEDS: GUAIFENESIN 600MG ER TABLET PO SCH ×2 (08:57→21:26)
[2022-02-24] MEDS: DEXT 5%/0.9% NACL 1,000 ML IV SCH ×2 (08:57→23:46)
[2022-02-24] MEDS: GABAPENTIN 300MG CAPSULE PO SCH ×2 (08:57→17:49)
[2022-02-24] MEDS: AMLODIPINE 10MG TABLET PO SCH (08:57)
[2022-02-24] MEDS: ASPIRIN 81MG TABLET PO SCH (08:57)
[2022-02-24] MEDS: LEVOFLOXACIN 250MG PREMIX 50 ML IV SCH (11:38)
[2022-02-24] MEDS: INSULIN GLARGINE 100 UNITS/ML SUBCUT SCH ×2 (11:43→21:30)
[2022-02-24 12:00] VITALS: BP 147/54
[2022-02-24] MEDS: ENOXAPARIN 40MG/0.4ML SYR SUBCUT SCH (15:04)
[2022-02-24 16:00] VITALS: BP 157/67
[2022-02-24 20:00] VITALS: BP 156/66
[2022-02-24] MEDS: ATORVASTATIN CALCIUM 40MG TABLET PO SCH (21:27)
[2022-02-24] MEDS: METOPROLOL TARTRATE 25MG TABLET PO SCH (21:27)
[2022-02-24] MEDS: ACETAMINOPHEN 325MG TABLET PO PRN (23:46)
[2022-02-25] VITALS: BP 152/56
[2022-02-25] MEDS: IPRATROPIUM/ALBUTEROL 0.5-3(2.5)MG/3ML NEB HHN SCH ×6 (01:19→21:42)
[2022-02-25 04:00] VITALS: BP 130/60
[2022-02-25] MEDS: OMEPRAZOLE 20MG CAPSULE EXTENDED RELEASE PO SCH (05:42)
[2022-02-25] MEDS: BLOOD SUGAR DIAGNOSTIC STRIP TEST SCH ×4 (05:43→20:36)
[2022-02-25] MEDS: INSULIN LISPRO 100 UNITS/ML SUBCUT SCH ×4 (06:04→21:00)
[2022-02-25 07:33] LABS: HEMATOCRIT. 29.9 % (36.0-48.0); HEMOGLOBIN. 9.5 g/dL (12.0-16.0); MEAN CORPUSCULAR HEMOGLOBIN 27.5 pg (28.0-32.0); MEAN CORPUSCULAR VOLUME 86.9 fL (81.0-99.0); MEAN PLATELET VOLUME 8.8 fl (7.4-10.4); PLATELET 201 x1000/uL (130-400); RED BLOOD CELL COUNT 3.44 mill/uL (4.2-5.4); RED CELL DISTRIBUTION WIDTH 15.8 % (11.6-14.6)
[2022-02-25 08:00] VITALS: BP 152/55
[2022-02-25 09:15] LABS: PLATELET ESTIMATE NORMAL
[2022-02-25] MEDS: GUAIFENESIN 600MG ER TABLET PO SCH ×2 (09:24→20:36)
[2022-02-25] MEDS: METOPROLOL TARTRATE 25MG TABLET PO SCH ×2 (09:24→20:36)
[2022-02-25] MEDS: DOCUSATE SODIUM 100MG CAPSULE PO SCH ×2 (09:24→16:30)
[2022-02-25] MEDS: ASPIRIN 81MG TABLET PO SCH (09:24)
[2022-02-25] MEDS: GABAPENTIN 300MG CAPSULE PO SCH ×2 (09:24→16:30)
[2022-02-25] MEDS: AMLODIPINE 10MG TABLET PO SCH (09:25)
[2022-02-25] MEDS: HYDRALAZINE HCL 100MG TABLET PO SCH ×2 (09:25→20:37)
[2022-02-25] MEDS: INSULIN GLARGINE 100 UNITS/ML SUBCUT SCH ×2 (09:26→20:36)
[2022-02-25 12:00] VITALS: BP 157/57
[2022-02-25] MEDS: ENOXAPARIN 40MG/0.4ML SYR SUBCUT SCH (13:31)
[2022-02-25 16:00] VITALS: BP 156/60
[2022-02-25] MEDS: DEXT 5%/0.9% NACL 1,000 ML IV SCH (16:31)
[2022-02-25 17:43] LABS: BG BASE EXCESS 2.4 mmol/L (-2.0-2.0); BG CARBOXYHEMOGLOBIN 0.3 % (0.5-1.5); BG DEOXYHEMOGLOBIN 8.7 % (0.0-5.0); BG FRACTION INSPIRED OXYGEN 21; BG HCO3 ACT 27.1 mmol/L (22.0-26.0); BG METHEMOGLOBIN 0.1 % (0.0-1.5); BG OXYGEN SATURATION 91.3 % (92.0-98.5); BG OXYHEMOGLOBIN 90.9 % (94.0-97.0); BG PCO2 42.7 mmHg (35.0-45.0); BG PH 7.421 (7.350-7.450); BG PO2 58.7 mmHg (75.0-100.0); BG SAMPLE SITE LEFT RADIAL; BG TOTAL HEMOGLOBIN 10.7 g/dL (12.0-18.0); BG VENT MODE ROOM AIR
[2022-02-25 20:00] VITALS: BP 149/65
[2022-02-25] MEDS: ATORVASTATIN CALCIUM 40MG TABLET PO SCH (20:36)
[2022-02-26] VITALS: BP 130/58
[2022-02-26] MEDS: IPRATROPIUM/ALBUTEROL 0.5-3(2.5)MG/3ML NEB HHN SCH ×3 (00:52→20:59)
[2022-02-26 04:00] VITALS: BP 171/81
[2022-02-26] MEDS: BLOOD SUGAR DIAGNOSTIC STRIP TEST SCH ×4 (06:11→21:46)
[2022-02-26] MEDS: OMEPRAZOLE 20MG CAPSULE EXTENDED RELEASE PO SCH (06:11)
[2022-02-26] MEDS: INSULIN LISPRO 100 UNITS/ML SUBCUT SCH ×4 (06:12→21:00)
[2022-02-26 08:00] VITALS: BP 163/59
[2022-02-26] MEDS: ACETAMINOPHEN 325MG TABLET PO PRN (10:05)
[2022-02-26] MEDS: DOCUSATE SODIUM 100MG CAPSULE PO SCH ×2 (10:06→16:59)
[2022-02-26] MEDS: METOPROLOL TARTRATE 25MG TABLET PO SCH ×3 (10:06→21:45)
[2022-02-26] MEDS: HYDRALAZINE HCL 100MG TABLET PO SCH ×3 (10:06→21:44)
[2022-02-26] MEDS: ASPIRIN 81MG TABLET PO SCH (10:07)
[2022-02-26] MEDS: GUAIFENESIN 600MG ER TABLET PO SCH ×2 (10:07→20:50)
[2022-02-26] MEDS: DEXT 5%/0.9% NACL 1,000 ML IV SCH (10:07)
[2022-02-26] MEDS: GABAPENTIN 300MG CAPSULE PO SCH ×2 (10:07→16:36)
[2022-02-26] MEDS: AMLODIPINE 10MG TABLET PO SCH (10:07)
[2022-02-26] MEDS: INSULIN GLARGINE 100 UNITS/ML SUBCUT SCH ×2 (10:11→22:00)
[2022-02-26 12:00] VITALS: BP 150/52
[2022-02-26] MEDS: ENOXAPARIN 40MG/0.4ML SYR SUBCUT SCH (13:39)
[2022-02-26 16:00] VITALS: BP 148/69
[2022-02-26 20:00] VITALS: BP 101/65
[2022-02-26] MEDS: ATORVASTATIN CALCIUM 40MG TABLET PO SCH (20:51)
[2022-02-27] VITALS: BP 134/56
[2022-02-27 04:00] VITALS: BP 146/63
[2022-02-27] MEDS: IPRATROPIUM/ALBUTEROL 0.5-3(2.5)MG/3ML NEB HHN SCH ×5 (04:00→21:40)
[2022-02-27] MEDS: OMEPRAZOLE 20MG CAPSULE EXTENDED RELEASE PO SCH (05:52)
[2022-02-27] MEDS: DEXT 5%/0.9% NACL 1,000 ML IV SCH ×2 (06:00→19:00)
[2022-02-27] MEDS: ACETAMINOPHEN 325MG TABLET PO PRN (06:16)
[2022-02-27] MEDS: BLOOD SUGAR DIAGNOSTIC STRIP TEST SCH ×4 (06:40→21:00)
[2022-02-27] MEDS: INSULIN LISPRO 100 UNITS/ML SUBCUT SCH ×4 (07:10→21:00)
[2022-02-27 07:43] LABS: BASOPHILS % 0.3 % (0.0-2.0); EOSINOPHILS % 1.5 % (0.0-5.0); HEMATOCRIT. 31.4 % (36.0-48.0); HEMOGLOBIN. 9.8 g/dL (12.0-16.0); MEAN CORPUSCULAR HEMOGLOBIN 27.2 pg (28.0-32.0); MEAN CORPUSCULAR VOLUME 87.4 fL (81.0-99.0); MEAN PLATELET VOLUME 9.1 fl (7.4-10.4); MONOCYTES % 6.9 % (2.0-8.0); NEUTROPHILS % 82.3 % (40.0-76.0); PLATELET 231 x1000/uL (130-400); RED CELL DISTRIBUTION WIDTH 15.5 % (11.6-14.6)
[2022-02-27 08:03] VITALS: BP 165/71
[2022-02-27] MEDS: GABAPENTIN 300MG CAPSULE PO SCH ×2 (09:10→17:21)
[2022-02-27] MEDS: AMLODIPINE 10MG TABLET PO SCH (09:10)
[2022-02-27] MEDS: METOPROLOL TARTRATE 25MG TABLET PO SCH ×2 (09:10→21:32)
[2022-02-27] MEDS: DOCUSATE SODIUM 100MG CAPSULE PO SCH ×2 (09:10→17:21)
[2022-02-27] MEDS: HYDRALAZINE HCL 100MG TABLET PO SCH ×3 (09:10→21:32)
[2022-02-27] MEDS: GUAIFENESIN 600MG ER TABLET PO SCH ×2 (09:10→20:10)
[2022-02-27] MEDS: ASPIRIN 81MG TABLET PO SCH (09:10)
[2022-02-27] MEDS: INSULIN GLARGINE 100 UNITS/ML SUBCUT SCH ×2 (09:11→22:00)
[2022-02-27 12:00] VITALS: BP 148/51
[2022-02-27] MEDS: ENOXAPARIN 40MG/0.4ML SYR SUBCUT SCH (13:17)
[2022-02-27 16:00] VITALS: BP 106/55
[2022-02-27 20:00] VITALS: BP 187/62
[2022-02-27] MEDS: ATORVASTATIN CALCIUM 40MG TABLET PO SCH (20:10)
[2022-02-28] VITALS: BP 133/63
[2022-02-28] MEDS: IPRATROPIUM/ALBUTEROL 0.5-3(2.5)MG/3ML NEB HHN SCH ×5 (01:47→20:17)
[2022-02-28 04:00] VITALS: BP 133/52
[2022-02-28] MEDS: OMEPRAZOLE 20MG CAPSULE EXTENDED RELEASE PO SCH (06:06)
[2022-02-28] MEDS: INSULIN LISPRO 100 UNITS/ML SUBCUT SCH ×4 (07:10→20:59)
[2022-02-28] MEDS: HYDRALAZINE HCL 100MG TABLET PO SCH ×3 (07:48→21:47)
[2022-02-28 08:00] VITALS: BP 163/62
[2022-02-28] MEDS: AMLODIPINE 10MG TABLET PO SCH (08:49)
[2022-02-28] MEDS: GUAIFENESIN 600MG ER TABLET PO SCH ×2 (08:49→21:46)
[2022-02-28] MEDS: DOCUSATE SODIUM 100MG CAPSULE PO SCH ×2 (08:49→17:29)
[2022-02-28] MEDS: ASPIRIN 81MG TABLET PO SCH (08:49)
[2022-02-28] MEDS: GABAPENTIN 300MG CAPSULE PO SCH ×2 (08:49→17:29)
[2022-02-28] MEDS: METOPROLOL TARTRATE 25MG TABLET PO SCH ×2 (08:50→21:47)
[2022-02-28] MEDS ORDERED: IPRATROPIUM/ALBUTEROL 0.5-3(2.5)MG/3ML NEB HHN PRN (09:15)
[2022-02-28] MEDS: INSULIN GLARGINE 100 UNITS/ML SUBCUT SCH ×2 (09:28→21:40)
[2022-02-28] MEDS: BLOOD SUGAR DIAGNOSTIC STRIP TEST SCH ×3 (11:41→20:16)
[2022-02-28 12:00] VITALS: BP 154/57
[2022-02-28] MEDS: DEXT 5%/0.9% NACL 1,000 ML IV SCH (13:16)
[2022-02-28] MEDS: ENOXAPARIN 40MG/0.4ML SYR SUBCUT SCH (13:16)
[2022-02-28] MEDS: ACETAMINOPHEN 325MG TABLET PO PRN (13:29)
[2022-02-28 16:00] VITALS: BP 145/51
[2022-02-28] MEDS: LACTULOSE 20G/30ML UDC PO SCH (17:29)
[2022-02-28 20:00] VITALS: BP 145/66
[2022-02-28] MEDS: ATORVASTATIN CALCIUM 40MG TABLET PO SCH (21:46)
[2022-03-01] VITALS: BP 144/64
[2022-03-01 04:00] VITALS: BP 162/62
[2022-03-01] MEDS: DEXT 5%/0.9% NACL 1,000 ML IV SCH ×2 (04:22→20:40)
[2022-03-01] MEDS: OMEPRAZOLE 20MG CAPSULE EXTENDED RELEASE PO SCH (06:09)
[2022-03-01] MEDS: HYDRALAZINE HCL 100MG TABLET PO SCH ×3 (06:10→22:00)
[2022-03-01] MEDS: BLOOD SUGAR DIAGNOSTIC STRIP TEST SCH ×4 (06:31→20:28)
[2022-03-01 06:59] LABS: BASOPHILS % 0.7 % (0.0-2.0); EOSINOPHILS % 2.6 % (0.0-5.0); HEMATOCRIT. 29.1 % (36.0-48.0); HEMOGLOBIN. 9.3 g/dL (12.0-16.0); LYMPHOCYTES % 12.8 % (20.0-50.0); MEAN CORPUSCULAR HEMOGLOBIN 27.5 pg (28.0-32.0); MEAN CORPUSCULAR VOLUME 86.5 fL (81.0-99.0); MEAN PLATELET VOLUME 8.1 fl (7.4-10.4); MONOCYTES % 8.1 % (2.0-8.0); NEUTROPHILS % 75.8 % (40.0-76.0); PLATELET 230 x1000/uL (130-400); RED BLOOD CELL COUNT 3.37 mill/uL (4.2-5.4); RED CELL DISTRIBUTION WIDTH 15.2 % (11.6-14.6)
[2022-03-01] MEDS: INSULIN LISPRO 100 UNITS/ML SUBCUT SCH ×4 (07:10→20:28)
[2022-03-01 07:29] LABS: CHLORIDE 107 mEq/L (98-107)
[2022-03-01 08:00] VITALS: BP 145/61
[2022-03-01] MEDS: IPRATROPIUM/ALBUTEROL 0.5-3(2.5)MG/3ML NEB HHN SCH ×2 (08:50→13:46)
[2022-03-01] MEDS: DOCUSATE SODIUM 100MG CAPSULE PO SCH ×2 (09:00→16:44)
[2022-03-01] MEDS: ASPIRIN 81MG TABLET PO SCH (09:41)
[2022-03-01] MEDS: METOPROLOL TARTRATE 25MG TABLET PO SCH ×2 (09:41→20:38)
[2022-03-01] MEDS: GABAPENTIN 300MG CAPSULE PO SCH ×2 (09:41→16:49)
[2022-03-01] MEDS: AMLODIPINE 10MG TABLET PO SCH (09:41)
[2022-03-01] MEDS: GUAIFENESIN 600MG ER TABLET PO SCH ×2 (09:41→20:37)
[2022-03-01] MEDS: LACTULOSE 20G/30ML UDC PO SCH ×2 (09:44→16:49)
[2022-03-01] MEDS: ACETAMINOPHEN 325MG TABLET PO PRN (09:49)
[2022-03-01 12:00] VITALS: BP 121/79
[2022-03-01] MEDS: INSULIN GLARGINE 100 UNITS/ML SUBCUT SCH ×2 (12:35→20:29)
[2022-03-01] MEDS: ENOXAPARIN 40MG/0.4ML SYR SUBCUT SCH (14:00)
[2022-03-01] MEDS: CLONIDINE 0.1MG TABLET PO SCH ×2 (15:05→22:00)
[2022-03-01 16:00] VITALS: BP 134/50
[2022-03-01 20:00] VITALS: BP 123/57
[2022-03-01] MEDS: ATORVASTATIN CALCIUM 40MG TABLET PO SCH (20:37)
[2022-03-01] MEDS: ALBUTEROL (0.083%) 2.5MG/3ML NEB HHN SCH (21:43)
[2022-03-02] VITALS: BP 137/56
[2022-03-02] MEDS: ALBUTEROL (0.083%) 2.5MG/3ML NEB HHN SCH ×4 (02:50→21:51)
[2022-03-02 04:00] VITALS: BP 114/57
[2022-03-02] MEDS: CLONIDINE 0.1MG TABLET PO SCH ×3 (06:00→22:00)
[2022-03-02] MEDS: BLOOD SUGAR DIAGNOSTIC STRIP TEST SCH ×4 (06:16→20:13)
[2022-03-02] MEDS: OMEPRAZOLE 20MG CAPSULE EXTENDED RELEASE PO SCH (06:17)
[2022-03-02] MEDS: HYDRALAZINE HCL 100MG TABLET PO SCH ×3 (06:18→22:13)
[2022-03-02] MEDS: INSULIN LISPRO 100 UNITS/ML SUBCUT SCH ×4 (06:18→20:14)
[2022-03-02 06:25] LABS: BASOPHILS % 0.7 % (0.0-2.0); HEMOGLOBIN. 9.2 g/dL (12.0-16.0); LYMPHOCYTES % 14.5 % (20.0-50.0); MEAN CORPUSCULAR HEMOGLOBIN 27.8 pg (28.0-32.0); MEAN CORPUSCULAR VOLUME 87.4 fL (81.0-99.0); MEAN PLATELET VOLUME 8.2 fl (7.4-10.4); MONOCYTES % 7.5 % (2.0-8.0); NEUTROPHILS % 74.3 % (40.0-76.0); PLATELET 220 x1000/uL (130-400); RED BLOOD CELL COUNT 3.32 mill/uL (4.2-5.4)
[2022-03-02 08:00] VITALS: BP 124/64
[2022-03-02] MEDS: DOCUSATE SODIUM 100MG CAPSULE PO SCH ×2 (09:00→17:49)
[2022-03-02] MEDS: LACTULOSE 20G/30ML UDC PO SCH ×2 (09:00→17:49)
[2022-03-02] MEDS: GUAIFENESIN 600MG ER TABLET PO SCH ×2 (09:00→20:13)
[2022-03-02] MEDS: ENOXAPARIN 40MG/0.4ML SYR SUBCUT SCH ×2 (09:14→20:43)
[2022-03-02] MEDS: ASPIRIN 81MG TABLET PO SCH (09:14)
[2022-03-02] MEDS: GABAPENTIN 300MG CAPSULE PO SCH ×2 (09:14→17:49)
[2022-03-02] MEDS: METOPROLOL TARTRATE 25MG TABLET PO SCH ×2 (09:17→20:43)
[2022-03-02] MEDS: AMLODIPINE 10MG TABLET PO SCH (09:17)
[2022-03-02] MEDS: INSULIN GLARGINE 100 UNITS/ML SUBCUT SCH ×2 (09:18→21:34)
[2022-03-02 12:00] VITALS: BP 98/55
[2022-03-02] MEDS ORDERED: MAGNESIUM 2 G PREMIX 50 ML IV NR (13:30)
[2022-03-02 16:00] VITALS: BP 129/63
[2022-03-02 20:00] VITALS: BP 168/66
[2022-03-02] MEDS: ACETAMINOPHEN 325MG TABLET PO PRN (20:13)
[2022-03-02] MEDS: ATORVASTATIN CALCIUM 40MG TABLET PO SCH (20:13)
[2022-03-03] VITALS: BP 92/63
[2022-03-03] MEDS: ALBUTEROL (0.083%) 2.5MG/3ML NEB HHN SCH ×2 (01:48→14:16)
[2022-03-03 04:00] VITALS: BP 141/45
[2022-03-03] MEDS: CLONIDINE 0.1MG TABLET PO SCH (05:59)
[2022-03-03] MEDS: OMEPRAZOLE 20MG CAPSULE EXTENDED RELEASE PO SCH (06:04)
[2022-03-03] MEDS: HYDRALAZINE HCL 100MG TABLET PO SCH ×2 (06:05→14:48)
[2022-03-03] MEDS: BLOOD SUGAR DIAGNOSTIC STRIP TEST SCH ×3 (06:18→16:40)
[2022-03-03] MEDS: INSULIN LISPRO 100 UNITS/ML SUBCUT SCH ×3 (06:19→17:10)
[2022-03-03 08:00] VITALS: BP 177/59
[2022-03-03] MEDS: LACTULOSE 20G/30ML UDC PO SCH ×2 (09:00→17:00)
[2022-03-03] MEDS: METOPROLOL TARTRATE 25MG TABLET PO SCH (09:00)
[2022-03-03] MEDS: DOCUSATE SODIUM 100MG CAPSULE PO SCH ×2 (09:23→17:00)
[2022-03-03] MEDS: ASPIRIN 81MG TABLET PO SCH (09:23)
[2022-03-03] MEDS: GUAIFENESIN 600MG ER TABLET PO SCH (09:25)
[2022-03-03] MEDS: AMLODIPINE 10MG TABLET PO SCH (09:25)
[2022-03-03] MEDS: INSULIN GLARGINE 100 UNITS/ML SUBCUT SCH (09:26)
[2022-03-03] MEDS: ENOXAPARIN 40MG/0.4ML SYR SUBCUT SCH (09:26)
[2022-03-03] MEDS: GABAPENTIN 300MG CAPSULE PO SCH ×2 (09:29→17:53)
[2022-03-03] MEDS: ACETAMINOPHEN 325MG TABLET PO PRN (11:11)
[2022-03-03 12:00] VITALS: BP 151/56
[2022-03-03] MEDS ORDERED: CLONIDINE 0.2MG TABLET PO SCH (14:00)
[2022-03-03 16:30] VITALS: BP 134/52
== END 2022-03-03 21:13 | DRG 130 ==
LOC: ER 18:57 → MICUSO 02-10 02:29 → EDBEDREQ 02-10 02:34 → EDBEDREQTM 02-10 02:34 → 6WST 02-10 08:40 → 5EST 02-11 11:07 → CVICU 02-11 13:14 → 7EST 02-22 16:35
PROVIDERS: ADMIT Internal Medicine; ATTEND Internal Medicine
PROC: 5A1955Z Respiratory Ventilation, Greater than 96 Consecutive Hours (ICD-10-PCS; principal; 2022-02-11)
PROC: 0BH17EZ Insertion of Endotracheal Airway into Trachea, Via Natural or Artificial Opening (ICD-10-PCS; 2022-02-11)
PROC: 5A09357 Assistance with Respiratory Ventilation, Less than 24 Consecutive Hours, Continuous Positive Airway Pressure (ICD-10-PCS; 2022-02-11)
PROC: 05HY33Z Insertion of Infusion Device into Upper Vein, Percutaneous Approach (ICD-10-PCS; 2022-02-13)
PROC: 5A09357 Assistance with Respiratory Ventilation, Less than 24 Consecutive Hours, Continuous Positive Airway Pressure (ICD-10-PCS; 2022-02-17)
PROC: 5A09357 Assistance with Respiratory Ventilation, Less than 24 Consecutive Hours, Continuous Positive Airway Pressure (ICD-10-PCS; 2022-02-18)
DX: J96.01 Acute respiratory failure with hypoxia (principal); N17.0 Acute kidney failure with tubular necrosis; G93.40 Encephalopathy, unspecified; I50.33 Acute on chronic diastolic (congestive) heart failure; E44.1 Mild protein-calorie malnutrition; J96.02 Acute respiratory failure with hypercapnia; I27.20 Pulmonary hypertension, unspecified; E87.29 Other acidosis; D63.1 Anemia in chronic kidney disease; I13.0 Hypertensive heart and chronic kidney disease with heart failure and stage 1 through stage 4 chronic kidney disease, or unspecified chronic kidney disease; J44.1 Chronic obstructive pulmonary disease with (acute) exacerbation; E11.42 Type 2 diabetes mellitus with diabetic polyneuropathy; E66.9 Obesity, unspecified; E87.5 Hyperkalemia; E11.22 Type 2 diabetes mellitus with diabetic chronic kidney disease; N18.30 Chronic kidney disease, stage 3 unspecified; E78.5 Hyperlipidemia, unspecified; M19.90 Unspecified osteoarthritis, unspecified site; D72.829 Elevated white blood cell count, unspecified; E78.00 Pure hypercholesterolemia, unspecified; K56.41 Fecal impaction; I47.1 Supraventricular tachycardia; Z87.891 Personal history of nicotine dependence; Z88.0 Allergy status to penicillin; Z86.73 Personal history of transient ischemic attack (TIA), and cerebral infarction without residual deficits; Z82.49 Family history of ischemic heart disease and other diseases of the circulatory system; Z68.42 Body mass index [BMI] 45.0-49.9, adult; Z90.49 Acquired absence of other specified parts of digestive tract
CPT/HCPCS: 31500; 36415; 36573; 36600; 71045; 71250; 71275; 74018; 80048; 80053; 80305; 81003; 82375; 82550; 82805; 82962; 83036; 83735; 83880; 84100; 84132; 84145; 84478; 84484; 85025; 85379; 87070; 87426; 93005; 93306; 93970; 94002; 94003; 94640; 94660; 97110; 97162; 97530; 99285; A6261; C1725; C1769; J0360; J1650; J1815; J1940; J1956; J2250; J2405; J2704; J2920; J2930; J3010; J3475; J3490; J7030; J7042; J7050; J7512; J7608; Q9967; A4315